=== PATIENT | male | born 1985 | race Caucasian/White ===

== ENCOUNTER 2021-06-19 13:36 | Emergency (ER) | payer MEDICAID, SELFPAY ==
[2021-06-19 14:06] VITALS: BP 145/97; PULSE 85; RESP 16; TEMP 36.8; O2SAT 99; BMI 34.0
[2021-06-19 14:44] LABS: COVID-19 Test Negative (Negative); IDNOW Serial# 9DD0AD1C
[2021-06-19 15:58] LABS: Hematocrit 49.1 % (42-52); Hemoglobin 17.1 g/dl (14.0-18.0); Mean Corpuscular HGB Conc 34.8 g/dl (31.0-36.0); Mean Corpuscular Hemoglobin 29.4 pg (27.0-33.0); Mean Corpuscular Volume 84.4 fL (80-98); Mean Platelet Volume 9.1 fL (9.4-12.4); Platelet Count 286 X10*3/uL (160-400); Red Blood Count 5.82 X10*6/uL (4.60-5.80); White Blood Count 11.1 X10*3/uL (4.8-10.8)
[2021-06-19 16:18] LABS: Lipase 25 U/L (8-78)
--- NOTE | 2021-06-19 16:43 | ED_ITS ---
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 He reports being seen in the ER about 1 year ago for severe cyclical vomiting and he stopped smoking marijuana at that time. He restarting smoking in November and has not had any issues until this last week. He reports about every 4 hours he vomits. He has been intermittently able to tolerate some food and drink. He d enies abdominal pain, fever, chills, diarrhea. MD elicited complaint: nausea and vomiting Onset (ago): day(s) (4) Description of vomiting: food contents, watery and bilious Associated nausea: Yes Associated abdominal pain: No Location of pain: none Severity: moderate Exacerbating factors: eating Relieving factors: vomiting Context: marijuana use Associated symptoms: denies other symptoms Treatment prior to arrival: other (took left over zofran this morning with some improvement) Related Data Previous Rx's Medication Instructions Recorded ondansetron 4 mg disintegrating 4 mg PO Q8H PRN #14 tab 06/19/21 tablet Allergies Allergy/AdvReac Type Severity Reaction Status Date / Time No Known Allergies Allergy Verified 06/19/21 14:06 Review of Systems Review of Systems: Constitutional: No Fever, No Chills ENT/Mouth: No sore throat, No Rhinorrhea, No Swallowing Difficulty Cardiovascular: No Chest Pain, No SOB, No Orthopnea, No Edema Respiratory: No Cough, No Sputum, No Wheezing, No dyspnea Gastrointestinal: + Nausea, + Vomiting, No Diarrhea, No abdominal Pain, No Hematochezia, No Melena Genitourinary: No Dysuria, No Urinary Frequency, No Hematuria Musculoskeletal: No joint pain, No Myalgias Skin: No Skin Lesions, No rash Neuro: No Weakness, No Numbness, No Dizziness, + Headache Psych: No Anxiety/Panic, No Depression Heme/Lymph: No Bruising, No Lymphadenopathy Endocrine: No Polyuria, No Polydipsia Gastrointestinal: Gastrointestinal: Reports nausea PMFSH Past Medical History Medical History (Updated 06/19/21 @ 17:38 by YENI Poe) No known health problems Social History Social History Alcohol intake: current Alcohol intake frequency: a few times a month Patient Tobacco Use Status: Current everyday Tobacco user Substance Use Type: Marijuana Advance Directives: No Advance Directives Information Provided: No Physical Exam Vital Signs: Vital Signs: Last Vital Signs Temp 98.9 F 06/19/21 17:01 Pulse 88 06/19/21 17:01 Resp 16 06/19/21 17:01 BP 147/95 H 06/19/21 17:01 Pulse Ox 97 06/19/21 17:01 Body Mass Index 34.0 Appearance: Alert. Oriented X3. No acute distress. Eyes: Pupils equal, round and reactive to light. ENT: Pharynx normal. Neck: Normal inspection. Neck supple. CVS: Normal heart rate and rhythm. Pulses normal. Respiratory: No respiratory distress. Breath sounds normal. Abdomen: Soft and nontender. No RUQ tenderness. normal +BS x4 Skin: Skin warm and dry. Normal skin color. Normal skin turgor. No rashes. Extremities: No lower extremity edema. Neuro: Oriented X 3. No motor deficit. No sensory deficit. Course Course Course Narrative: 35 yo male with history of cyclical vomiting presents to the ER with 4 days of N/V, no abdominal pain aside from some mild abd wall soreness when vomiting. No fever, chills or diarrhea. He appears well. VS are normal. No vomiting in the last few hours. Will give SL zofran and check basic labs. Reevaluation(s) Reevaluation #1: Labs showing some mild transaminitis with normal alk phos. He is completely non-tender and denies ever having RUQ pains. He has an appointment with his PCP in 1 month for a physical. Recommend getting repeat labs at that time. He is stable for discharge with antiemetic and cessation of smoking marijuana. Patient agrees and understands. He will come back to the ER if he develops RUQ pain or persistent vomiting despite zofran. MDM - Nausea/Vomiting/Diarrhea Lab Data Result diagrams: 06/19/21 15:46 06/19/21 15:46 Labs: Lab Results 06/19/21 06/19/21 06/19/21 Range/Units 14:18 15:46 15:46 WBC 11.1 H (4.8-10.8) X10*3/uL RBC 5.82 H (4.60-5.80) X10*6/uL Hgb 17.1 (14.0-18.0) g/dl Hct 49.1 (42-52) % MCV 84.4 (80-98) fL MCH 29.4 (27.0-33.0) pg MCHC 34.8 (31.0-36.0) g/dl RDW 13.0 (11.0-16.0) % Plt Count 286 (160-400) X10*3/uL MPV 9.1 L (9.4-12.4) fL Absolute Nucleated RBC 0.000 (0.0-0.012) X10*3/uL Nucleated RBC % (auto) 0.0 (0.0-0.2) /100WBC Sodium 142 (135-145) mmol/L Potassium 5.1 (3.3-5.1) mmol/L Chloride 103 (96-108) mmol/L Carbon Dioxide 27 (22-29) mmol/L Anion Gap 17 (12-20) BUN 17 H (9-16) mg/dL Creatinine 0.92 (0.5-1.4) mg/dL Estim Creat Clear Calc 130.6 Estimated GFR > 60 Random Glucose 97 (60-115) mg/dL Calcium 10.5 H (8.4-10.2) mg/dL Total Bilirubin 1.1 H (0.0-1.0) mg/dL AST 63 H (5-37) U/L ALT 114 H (0-40) U/L Alkaline Phosphatase 67 (39-117) U/L Total Protein 7.9 (6.5-8.0) g/dL Albumin 5.2 H (3.5-5.0) g/dL Lipase 25 (8-78) U/L COVID-19 (LUC) Negative (Negative) COVID-19 Clin Com See Note Critical Care Time Critical Care Time Critical Care Time: No Discharge Plan Discharge Clinical Impression: Cyclical vomiting Patient Disposition: Home, Self-Care Instructions: Cyclic Vomiting Syndrome (ED) Additional Instructions: Take the prescribed medication as needed for nausea - it was sent to the [facility] in [address] Do not smoke marijuana or use THC as this is most likely the cause of your vomiting Your liver enzymes were slightly elevated, recommend repeat blood work with your doctor If you develop new or worsening symptoms call 911 or come back to the ER for further evaluation. Prescriptions: New ondansetron 4 mg tablet,disintegrating 4 mg PO Q8H PRN (Reason: nausea and vomiting) Qty: 14 RF: 0
[2021-06-19] MEDS: Ondansetron ODT 4 MG TAB.RAPDIS TRANSLINGU (16:59)
[2021-06-19 17:01] VITALS: BP 147/95; PULSE 88; RESP 16; TEMP 37.2; O2SAT 97
[2021-06-19 17:23] LABS: Alanine Aminotransferase 114 U/L (0-40); Albumin Level 5.2 g/dL (3.5-5.0); Alkaline Phosphatase 67 U/L (39-117); Anion Gap 17 (12-20); Aspartate Amino Transferase 63 U/L (5-37); Bilirubin Total 1.1 mg/dL (0.0-1.0); Blood Urea Nitrogen 17 mg/dL (9-16); Calcium 10.5 mg/dL (8.4-10.2); Carbon Dioxide 27 mmol/L (22-29); Chloride 103 mmol/L (96-108); Creatinine Clr Calc Pharmacy 130.6; Estimated Glomerular Filt Rate > 60; Glucose Random 97 mg/dL (60-115); Potassium 5.1 mmol/L (3.3-5.1); Sodium 142 mmol/L (135-145); Total Protein 7.9 g/dL (6.5-8.0)
[2021-06-19 18:15] LABS: TSH reflex Free T4 2.13 uIU/mL (0.32-4.0)
== END 2021-06-19 18:08 | disposition home or self-care (01) ==
PROVIDERS: Physician Assistant; Emergency Provider Internal Medicine
DX: R11.15 Cyclical vomiting syndrome unrelated to migraine (principal); R11.2 Nausea with vomiting, unspecified; F17.210 Nicotine dependence, cigarettes, uncomplicated; F12.90 Cannabis use, unspecified, uncomplicated
CPT/HCPCS: 36415; 80053; 83690; 84443; 85027; 87635; 99283; 99284